=== PATIENT | female | born 1960 | race American Indian/Alaskan Native ===

== ENCOUNTER 2019-01-13 19:14 | Emergency (ER) | payer BC, OTHER ==
--- NOTE | 2019-01-13 19:45 | Emergency Department Report ---
Blank Doc - Documentation Documentation: This is a 58-year-old female that presents with right foot pain s/p injury that occurred Freddy. High blood pressure in triage which she stopped taking Lisinopril. Denies any headache or any other symptoms. This initial assessment/diagnostic orders/clinical plan/treatment(s) is/are subject to change based on patient's health status, clinical progression and re- assessment by fellow clinical providers in the ED. Further treatment and workup at subsequent clinical providers discretion. Patient/guardians urged not to elope from the ED as their condition may be serious if not clinically assessed and managed. Initial orders include: 1- Patient sent to Main ED for further evaluation and treatment. 2- xray 3- labs
[2019-01-13] MEDS ORDERED: CATAPRES PO ONE (19:48)
[2019-01-13] MEDS ORDERED: CATAPRES ONE (19:50)
[2019-01-13 20:29] LABS: Basophils # (Auto) 0.1 K/mm3 (0.0-0.1); Basophils % (Auto) 0.9 % (0.0-1.8); Eosinophils # (Auto) 0.2 K/mm3 (0.0-0.4); Eosinophils % (Auto) 1.6 % (0.0-4.3); Hematocrit 37.7 % (30.3-42.9); Hemoglobin 12.4 gm/dl (10.1-14.3); Lymphocytes # (Auto) 2.5 K/mm3 (1.2-5.4); Lymphocytes % (Auto) 25.2 % (13.4-35.0); Mean Corpuscular HGB Conc 33 % (30-34); Mean Corpuscular Volume 98 fl (79-97); Monocytes # (Auto) 0.6 K/mm3 (0.0-0.8); Monocytes % (Auto) 5.8 % (0.0-7.3); Platelet Count 235 K/mm3 (140-440); Red Blood Count 3.87 M/mm3 (3.65-5.03); Red Cell Distribution Width 14.5 % (13.2-15.2)
[2019-01-13 20:46] LABS: Calcium 9.7 mg/dL (8.4-10.2); Hemolysis Index 22
[2019-01-13] MEDS ORDERED: IBUPROFEN PO ONE (20:50)
[2019-01-13 20:53] LABS: BUN/Creatinine Ratio 14; Blood Urea Nitrogen 14 mg/dL (7-17)
--- NOTE | 2019-01-13 21:15 | Emergency Department Report ---
ED Lower Extremity HPI - General Chief Complaint: Extremity Injury, Lower Stated Complaint: RIGHT FOOT PAIN Time Seen by Provider: 01/13/19 19:42 Source: patient Mode of arrival: Ambulatory Limitations: No Limitations - History of Present Illness Initial Comments: 58-year-old female with past medical history of hypertension presents to the hospital with complaint of right foot pain since injury 3 days ago. Patient states that her bowl fell from a top shelf and landed on her right foot. Patient was wearing 2 socks at the time. She was able to break the fall of the bowl and denies that the bowl broke and shattered. Patient had minimal pain initially but has increased as the days progressed despite ibuprofen, ice, and elevation. She is currently unable to complete pressure on the foot. She presents with significantly elevated blood pressure and states she has been noncompliant with blood pressure meds 1 month. She went to the ER for ang ioedema due to lisinopril limit was discontinued. She never followed up for replacement blood pressure medicine. She has been taking potassium because she heard a car reduce her blood pressure. PMD: Urgent care clinic: - Related Data Previous Rx's Medication Instructions Recorded Last Taken Type ALBUTEROL Inhaler (OR & NICU) 2 puff IH QID PRN #1 inhalation 07/14/16 Unknown Rx [ProAir HFA Inhaler] hydroCHLOROthiazide [HCTZ] 25 mg PO QDAY #30 tablet 07/14/16 Unknown Rx Ibuprofen [Motrin] 800 mg PO Q8HR PRN #30 tablet 01/13/19 Unknown Rx amLODIPine [Norvasc] 10 mg PO DAILY #30 tab 01/13/19 Unknown Rx Allergies Allergy/AdvReac Type Severity Reaction Status Date / Time lisinopril Allergy Swelling Verified 01/13/19 19:49 ED Review of Systems ROS: Stated complaint: RIGHT FOOT PAIN Other details as noted in HPI Comment: All other systems reviewed and negative ED Past Medical Hx - Past Medical History Hx Hypertension: Yes (not on meds) Hx Asthma: Yes (not on meds) - Social History Smoking Status: Never Smoker Substance Use Type: None - Medications Home Medications: Home Medications Medication Instructions Recorded Confirmed Last Taken Type ALBUTEROL Inhaler (OR & NICU) 2 puff IH QID PRN #1 inhalation 07/14/16 Unknown Rx [ProAir HFA Inhaler] hydroCHLOROthiazide [HCTZ] 25 mg PO QDAY #30 tablet 07/14/16 Unknown Rx Ibuprofen [Motrin] 800 mg PO Q8HR PRN #30 tablet 01/13/19 Unknown Rx amLODIPine [Norvasc] 10 mg PO DAILY #30 tab 01/13/19 Unknown Rx ED Physical Exam - General Limitations: No Limitations - Other Other exam information: General: No limitations, patient is alert in no acute distress Head exam: Atraumatic, normocephalic Eyes exam: Normal appearance, pupils equal reactive to light, extraocular movements intact ENT: Moist mucous membrane, normal oropharynx Neck exam: Normal inspection, full range of motion, no meningismus nontender Respiratory exam: Clear to auscultation bilateral, no wheezes, rales, crackles Cardiovascular: Normal rate and rhythm, normal heart sounds Abdomen: Soft, nondistended, and nontender, with normal bowel sounds, no rebound, or guarding Extremity: diffuse right foot swelling distally with pain at 1 through 3 metatarsal bones. 2+ DP pulse. No warmth or erythema. Back: Normal Inspection, full range of motion, no tenderness Neurologic: Alert, oriented x3, cranial nerves intact, no motor or sensory deficit Psychiatric: normal affect, normal mood Skin: Warm, dry, intact, ED Course Vital Signs 01/13/19 01/13/19 01/13/19 19:21 19:26 19:43 Temperature 99.4 F 99.4 F 99.4 F Pulse Rate 107 H 116 H 116 H Respiratory 18 18 18 Rate Blood Pressure 238/140 Blood Pressure 238/140 [Right] O2 Sat by Pulse 99 99 99 Oximetry 01/13/19 01/13/19 01/13/19 19:49 20:45 21:05 Temperature 99 F Pulse Rate 116 H 96 H Respiratory 16 18 Rate Blood Pressure 252/146 Blood Pressure 210/110 [Right] O2 Sat by Pulse 100 Oximetry ED Lower Extremity MDM - Lab Data Result diagrams: 01/13/19 20:04 01/13/19 20:04 Lab Results 01/13/19 01/13/19 Range/Units 20:04 20:04 WBC 10.0 (4.5-11.0) K/mm3 RBC 3.87 (3.65-5.03) M/mm3 Hgb 12.4 (10.1-14.3) gm/dl Hct 37.7 (30.3-42.9) % MCV 98 H (79-97) fl MCH 32 (28-32) pg MCHC 33 (30-34) % RDW 14.5 (13.2-15.2) % Plt Count 235 (140-440) K/mm3 Lymph % (Auto) 25.2 (13.4-35.0) % Price % (Auto) 5.8 (0.0-7.3) % Eos % (Auto) 1.6 (0.0-4.3) % Baso % (Auto) 0.9 (0.0-1.8) % Lymph # 2.5 (1.2-5.4) K/mm3 Price # 0.6 (0.0-0.8) K/mm3 Eos # 0.2 (0.0-0.4) K/mm3 Baso # 0.1 (0.0-0.1) K/mm3 Seg Neutrophils % 66.5 (40.0-70.0) % Seg Neutrophils # 6.6 (1.8-7.7) K/mm3 Sodium 137 (137-145) mmol/L Potassium 4.3 (3.6-5.0) mmol/L Chloride 99.4 (98-107) mmol/L Carbon Dioxide 20 L (22-30) mmol/L Anion Gap 22 mmol/L BUN 14 (7-17) mg/dL Creatinine 1.0 (0.7-1.2) mg/dL Estimated GFR > 60 ml/min BUN/Creatinine Ratio 14 % Glucose 106 H (65-100) mg/dL Calcium 9.7 (8.4-10.2) mg/dL - Radiology Data Radiology results: report reviewed PROCEDURE: XR FOOT 3+V RT TECHNIQUE: Right foot radiographs, AP, lateral, and oblique views. HISTORY: right foot pain COMPARISONS: None . FINDINGS: Fracture (s) and/or Dislocation(s): None . Alignment: There is a mild hallux valgus deformity . Joint space(s): Moderate narrowing of the joint spaces . Soft tissues: Moderate diffuse soft tissue swelling . Bone mineralization: Normal . Foreign bodies: None . Calcaneal spurring: Small inferior spur . IMPRESSION: There is no evidence of an acute fracture. Moderate arthritis. Moderate diffuse soft tissue swelling. . - Medical Decision Making Foot contusion without fracture. Cast shoe and crutches provided. BP improved with ED meds. Norvasc prescribed. No signs of hypertensive emergency at this time. Outpatient follow-up encouraged - Differential Diagnosis fracture, contusion, hypertensive emergency Critical Care Time: No Critical care attestation.: If time is entered above; I have spent that time in minutes in the direct care of this critically ill patient, excluding procedure time. ED Disposition Clinical Impression: Contusion of foot, right, Uncontrolled hypertension, Noncompliance with medication regimen Disposition: TO HOME OR SELFCARE Is pt being admited?: No Does the pt Need Aspirin: No Condition: Stable Instructions: Hypertension (ED), Foot Contusion (ED) Additional Instructions: Take the medication as prescribed. Follow up with your doctor or the clin ic/doctor provided. Return if symptoms worsen as indicated by your discharge instructions Prescriptions: Ibuprofen [Motrin] 800 mg PO Q8HR PRN #30 tablet PRN Reason: Pain, Moderate (4-6) amLODIPine [Norvasc] 10 mg PO DAILY #30 tab Referrals: [facility] MD TIMMY [Primary Care Provider] - 3-5 Days JEAN PEDRAZA MD [Staff Physician] - 3-5 Days (Orthopedic) WHIT HUSSEIN MD [Staff Physician] - 3-5 Days (Primary care doctor) Forms: Work/School Release Form(ED) Time of Disposition: 00:03
--- NOTE | 2019-01-13 23:13 | XRay Report ---
PROCEDURE: XR FOOT 3+V RT TECHNIQUE: Right foot radiographs, AP, lateral, and oblique views. HISTORY: right foot pain COMPARISONS: None . FINDINGS: Fracture (s) and/or Dislocation(s): None . Alignment: There is a mild hallux valgus deformity . Joint space(s): Moderate narrowing of the joint spaces . Soft tissues: Moderate diffuse soft tissue swelling . Bone mineralization: Normal . Foreign bodies: None . Calcaneal spurring: Small inferior spur . IMPRESSION: There is no evidence of an acute fracture. Moderate arthritis. Moderate diffuse soft tis carolyn swelling. . This document is electronically signed by Arina Valdez DO., Jan 13 2019 11:11:10 PM ET
[2019-01-14 00:47] VITALS: BP 136/80
== END 2019-01-14 00:40 | disposition home or self-care (01) ==
LOC: ED 19:14
DX: S90.31XA Contusion of right foot, initial encounter (principal); I16.0 Hypertensive urgency; I10 Essential (primary) hypertension; J45.909 Unspecified asthma, uncomplicated; Z88.5 Allergy status to narcotic agent; W17.89XA Other fall from one level to another, initial encounter; Y93.89 Activity, other specified; Y92.89 Other specified places as the place of occurrence of the external cause; Y99.8 Other external cause status
CPT/HCPCS: 36415; 80048; 85025; 99284

== ENCOUNTER 2019-05-10 08:51 | Emergency (ER) | payer SELFPAY ==
[2019-05-10 09:03] VITALS: BP 157/89
--- NOTE | 2019-05-10 09:35 | Emergency Department Report ---
ED Altered Mental Status HPI - General Chief Complaint: Altered Mental Status Stated Complaint: AMS Time Seen by Provider: 05/10/19 09:30 Source: patient, EMS Mode of arrival: Ambulatory Limitations: Other - History of Present Illness Initial Comments: Mrs. Vargas is a 58-year-old female with hx of HTN, DM who was recently treated for cellulitis. Today, She returned to her place of work for light duty. She developed nausea. Her coworker suggested that she go home for the day. Her coworker obtained an [employer] car ride for her. She had a difficulty communicating with the ub[employer] route driver salesperson. Consequently, the route driver salesperson felt she was disabled and required medical care. The patient insisted that the confusion was over her address. She was able to state her address. She stated that she told the route driver salesperson repeatedly what her address is. Due to confusion, she was brought to the hospital. She states that she is in her normal state of health. She took several medications this morning. She feels as if the nausea was due to medication on an empty stomach. She denies headache fever chest pain abdominal camila. She feels well enough to walk home. She plans to walk home at this time. She denies paralysis paresthesias difficulty with speech or walking. MD Complaint: confusion -: This morning Severity: mild Associated Symptoms: denies other symptoms - Related Data Previous Rx's Medication Instructions Recorded Last Taken Type ALBUTEROL Inhaler (OR & NICU) 2 puff IH QID PRN #1 inhalation 07/14/16 Unknown Rx [ProAir HFA Inhaler] hydroCHLOROthiazide [HCTZ] 25 mg PO QDAY #30 tablet 07/14/16 Unknown Rx Ibuprofen [Motrin] 800 mg PO Q8HR PRN #30 tablet 01/13/19 Unknown Rx amLODIPine [Norvasc] 10 mg PO DAILY #30 tab 01/13/19 Unknown Rx Allergies Allergy/AdvReac Type Severity Reaction Status Date / Time lisinopril Allergy Swelling Verified 05/10/19 09:03 ED Review of Systems ROS: Stated complaint: AMS Other details as noted in HPI Comment: All other systems reviewed and negative Constitutional: denies: fever, malaise Respiratory: denies: cough Cardiovascular: denies: chest pain ED Past Medical Hx - Past Medical History Previous Medical History?: Yes Hx Hypertension: Yes (not on meds) Hx Asthma: Yes (not on meds) - Social History Smoking Status: Never Smoker Substance Use Type: Alcohol - Medications Home Medications: Home Medications Medication Instructions Recorded Confirmed Last Taken Type ALBUTEROL Inhaler (OR & NICU) 2 puff IH QID PRN #1 inhalation 07/14/16 Unknown Rx [ProAir HFA Inhaler] hydroCHLOROthiazide [HCTZ] 25 mg PO QDAY #30 tablet 07/14/16 Unknown Rx Ibuprofen [Motrin] 800 mg PO Q8HR PRN #30 tablet 01/13/19 Unknown Rx amLODIPine [Norvasc] 10 mg PO DAILY #30 tab 01/13/19 Unknown Rx ED Physical Exam - General Limitations: Other General appearance: alert, in no apparent distress - Head Head exam: Present: atraumatic, normocephalic - Eye Eye exam: Present: normal appearance - ENT ENT exam: Present: mucous membranes moist - Neck Neck exam: Present: normal inspection, full ROM - Respiratory Respiratory exam: Present: normal lung sounds bilaterally. Absent: respiratory distress, wheezes, rales, rhonchi, stridor - Cardiovascular Cardiovascular Exam: Present: regular rate, normal rhythm, normal heart sounds. Absent: systolic murmur, diastolic murmur, rubs, gallop - GI/Abdominal GI/Abdominal exam: Present: soft, normal bowel sounds. Absent: distended, tenderness, guarding, rebound - Extremities Exam Extremities exam: Present: normal inspection - Back Exam Back exam: Present: normal inspection - Neurological Exam Neurological exam: Present: alert, oriented X3 - Psychiatric Psychiatric exam: Present: normal affect, normal mood - Skin Skin exam: Present: warm, dry, intact, normal color. Absent: rash - Assessment Assessment Interval: Baseline - Level of Consciousness 1a. Level of Consciousness: alert/keenly responsive - LOC Questions 1b. LOC Questions: answers both correctly - LOC Command 1c. LOC Commands: performs tasks correctly - Best Gaze 2. Best Gaze: normal - Visual 3. Visual: no visual loss - Facial Palsy 4. Facial Palsy: normal symmetrical movement - Motor Arm 5a. Motor Arm Left: no drift 5b. Motor Arm Right: no drift - Motor Leg 6a. Motor Leg Left: no drift 6b. Motor Leg Right: no drift - Limb Ataxia 7. Limb Ataxia: absent - Sensory 8. Sensory: normal - Best Language 9. Best Language: no aphasia - Dysarthria 10. Dysarthria: normal - Extinction and Inattention 11. Extinction/Inattention: no abnormality - Scoring Total Score: 0 Stroke Severity: No Stroke Symptoms ED Course Vital Signs 05/10/19 09:00 Temperature 97.8 F Pulse Rate 107 H Respiratory 16 Rate Blood Pressure 157/89 O2 Sat by Pulse 100 Oximetry - Lab Data Lab Results 05/10/19 Range/Units 09:06 POC Glucose 144 H (70-105) - Medical Decision Making Mrs. Vargas presents with report of nausea and confusion. I do not suspect TIA or serious cause of confusion. It does appear that there was confusion with the car jockey. She understands to call 911 if she develops signs and symptoms of progressing illness especially trouble with speech or difficulty walking Critical care attestation.: If time is entered above; I have spent that time in minutes in the direct care of this critically ill patient, excluding procedure time. ED Disposition Clinical Impression: General ill feeling Disposition: DC-01 TO HOME OR SELFCARE Is pt being admited?: No Does the pt Need Aspirin: No Condition: Stable Additional Instructions: Please call 911 if you develop any new symptoms. Referrals: [facility] [Outside] - 3-5 Days Forms: Work/School Release Form(ED)
== END 2019-05-10 09:49 | disposition home or self-care (01) ==
LOC: ED 08:51
DX: R53.83 Other fatigue (principal); Z88.6 Allergy status to analgesic agent
CPT/HCPCS: 82962